=== PATIENT | male | born 1945 ===

== ENCOUNTER 2020-06-30 06:00 | Outpatient (RCR) | payer MEDICARE, OTHER, SELFPAY | END 2020-07-25 23:59 | disposition home or self-care (01) | LOC: MOT 06:00 | PROVIDERS: Referring Provider Family Medicine; Visit Provider Family Medicine | DX: I87.8 Other specified disorders of veins (principal); I89.0 Lymphedema, not elsewhere classified | CPT/HCPCS: 97140; 97166 ==

== ENCOUNTER 2020-07-26 06:00 | Outpatient (RCR) | payer MEDICARE, OTHER, SELFPAY | END 2020-08-25 23:59 | disposition home or self-care (01) | LOC: MOT 06:00 | PROVIDERS: Referring Provider Family Medicine; Visit Provider Family Medicine | DX: I87.2 Venous insufficiency (chronic) (peripheral) (principal); I89.0 Lymphedema, not elsewhere classified | CPT/HCPCS: 97140 ==

== ENCOUNTER 2020-08-26 06:00 | Outpatient (RCR) | payer MEDICARE, OTHER, SELFPAY | END 2020-09-24 23:59 | disposition home or self-care (01) | LOC: MOT 06:00 | PROVIDERS: Referring Provider Family Medicine; Visit Provider Family Medicine | DX: I87.8 Other specified disorders of veins (principal); I89.0 Lymphedema, not elsewhere classified; I87.2 Venous insufficiency (chronic) (peripheral) | CPT/HCPCS: 97140 ==

== ENCOUNTER 2020-10-23 12:11 | Outpatient (CLI) | payer MEDICARE, OTHER, SELFPAY ==
--- NOTE | 2020-10-23 12:25 | XR_ITS ---
WS: [id number] XR lumbar spine 2-3V* [id number] REASON FOR EXAM: LUMBAR RADICULOPATHY FINDINGS: Bone density appears somewhat diminished. Biconcave compression deformities throughout the lumbar spine of unknown age. Moderate narrowing of the intervertebral disc space at L5-S1 associated with significant degenerative arthropathy in the facet joint and 5 mm of anterior subluxation of L5 on S1. There is significant de generative change in the L4-L5 and facet joint as well. No other significant findings. XR/XR lumbar spine 2-3V* [id number] IMPRESSION: Somewhat diminished bone density with multiple biconcave compression deformitie s which most likely are chronic. Degenerative spondylosis at L5-S1 as above.
== END 2020-10-23 12:12 | disposition home or self-care (01) ==
PROVIDERS: PCP Family Medicine; Visit Provider Family Medicine
DX: M54.16 Radiculopathy, lumbar region (principal); M47.817 Spondylosis without myelopathy or radiculopathy, lumbosacral region
CPT/HCPCS: 72100